=== PATIENT | male | born 1945 | race Caucasian/White ===

== ENCOUNTER 2019-04-01 16:54 | Inpatient (IN) | payer OTHER, MEDICAID ==
[~2019-04-01] VITALS: Ht 167.6 cm; Wt 88.0 kg
[2019-04-01] MEDS: NACL 0.9% 1,000 ML IV SCH (00:35)
[2019-04-01 16:59] VITALS: BP 121/76
[2019-04-01] MEDS ORDERED: SODIUM CHLORIDE FLUSH 10 ML SYR IVF STA (17:54)
--- NOTE | 2019-04-01 18:03 | NUR ---
PT TAKEN TO BED 3.
--- NOTE | 2019-04-01 18:19 | NUR ---
PATIENT PRESENTS TO ED WITH C/O 9/10 DIFFUSE ABDOMINAL PAIN X 15 DAYS. PT STATES THAT PAIN RADIATES TO BACK. +N/V, -DIARRHEA. ABDOMEN SOFT, NON-TENDER. ACTIVE BOWEL SOUNDS. LBM: YESTERDAY. NO URINARY SYMPTOMS. VSS; PATIENT POSITIONED FOR COMFORT; HOB ELEVATED; BEDRAILS UP X2; BED DOWN. ER MD MADE AWARE OF PT STATUS. PMH:HTN, DM, HLD MEDS: AMLODIPINE, METFORMIN, ATORVASTATIN, IBUPROFEN, NAPROXEN, BENAZEPIL, HYDROCODONE-ACETAMINOPHEN, OMEPRAZOLE, AMOXICILLIN NO ALLERGIES.
[2019-04-01 18:27] LABS: BASOPHILS # (AUTO) 0.1 K/uL (0.00-0.22); BASOPHILS % (AUTO) 0.8 % (0.0-2.0); EOSINOPHILS # (AUTO) 0.1 K/uL (0-0.4); EOSINOPHILS % (AUTO) 1.6 % (0.0-4.0); HEMATOCRIT 40.4 % (36-52); HEMOGLOBIN 13.2 g/dL (12.0-18.0); LYMPHOCYTES # (AUTO) 1.2 K/uL (2.0-11.5); LYMPHOCYTES % (AUTO) 15.4 % (20.5-51.1); MEAN CORPUSCULAR HEMOGLOBIN 27 pg (27-31); MEAN CORPUSCULAR HGB CONC 33 g/dL (33-37); MONOCYTES # (AUTO) 0.5 K/uL (0.8-1.0); MONOCYTES % (AUTO) 5.9 % (1.7-9.3); NEUTROPHILS # (AUTO) 6.1 K/uL (1.8-7.7); NEUTROPHILS % (AUTO) 76.3 % (42.2-75.2); PLATELET COUNT (AUTO) 316 K/uL (140-450); RED BLOOD CELL COUNT(AUTO) 4.86 MIL/uL (4.20-6.10); RED CELL DISTRIBUTION WIDTH 22.9 % (11.6-13.7); WHITE BLOOD COUNT (AUTO) 7.9 K/uL (4.8-10.8)
[2019-04-01 18:28] LABS: APPEARANCE,URINE SL CLOUDY (CLEAR); BILIRUBIN,URINE NEGATIVE (NEGATIVE); BLOOD, URINE NEGATIVE (NEGATIVE); COLOR,URINE YELLOW (YELLOW); LEUKOCYTE ESTERASE ,URINE NEGATIVE (NEGATIVE); NITRITE, URINE NEGATIVE (NEGATIVE); UGLUCOSE 3+ (NEGATIVE)
[2019-04-01 18:51] LABS: ALBUMIN 4.3 g/dL (3.4-5.0); ANION GAP 11.9 (8-16); ASPARTATE AMINOTRANSFERASE 21 U/L (15-37); CARBON DIOXIDE 28.7 mmol/L (21-32); CHLORIDE 99 mmol/L (98-107); GLUCOSE 86 mg/dL (74-106); LIPASE 231 U/L (73-393); POTASSIUM 4.6 mmol/L (3.5-5.1); SODIUM SERUM 135 mmol/L (136-145); TOTAL BILIRUBIN 0.3 mg/dL (0.0-1.0); UREA NITROGEN, BLOOD 8 mg/dL (7-18)
[2019-04-01 18:57] LABS: RBC,URINE 0 /HPF (0-5); WBC,URINE 0-5 /HPF (0-5)
[2019-04-01 18:58] LABS: HYALINE CASTS, URINE 0-10 /LPF (None Seen)
--- NOTE | 2019-04-01 19:30 | NUR ---
report given to pm rn, pt stable at this time.
[2019-04-01] MEDS ORDERED: ONDANSETRON 4 MG/2 ML VIAL IVP ONE (19:50)
[2019-04-01] MEDS ORDERED: NACL 0.9% 1,000 ML IV ONE (19:50)
--- NOTE | 2019-04-01 20:01 | NUR ---
PT LEFT TO CT VIA W/C
--- NOTE | 2019-04-01 20:10 | NUR ---
PT RETURNED FROM CT
--- NOTE | 2019-04-01 20:11 | NUR ---
PT AMBULATED TO RESTROOM
[2019-04-01] MEDS ORDERED: MORPHINE SULFATE 4 MG/ML SYR IVP ONE (21:00)
--- NOTE | 2019-04-01 21:05 | NUR ---
PT C/O ABDOMINAL PAIN AND HEADACHE. PAIN LEVEL 8/10. ERMD MADE AWARE.
[2019-04-01] MEDS ORDERED: LEVOFLOXACIN 500 MG/D5W PREMIX 100 ML IV ONE (21:15)
[2019-04-01] MEDS ORDERED: metroNIDAZOLE 500 MG/NS PREMIX 100 ML IV ONE (21:15)
--- NOTE | 2019-04-01 21:35 | NUR ---
PT AMBULATED TO RESTROOM
--- NOTE | 2019-04-01 22:26 | NUR ---
PT RESTING IN BED ON CELL PHONE. VSS. WILL CONTINUE TO MONITOR.
--- NOTE | 2019-04-01 23:00 | NUR ---
PT RESTING IN BED VSS. WILL CONTINUE TO MONITOR.
--- NOTE | 2019-04-01 23:34 | NUR ---
TRANSFER OF CARE AND REPORT GIVEN TO JOSÉ LUIS RAMOS
--- NOTE | 2019-04-01 23:34 | NUR ---
Patient will be admitted to care of DR. LEHMAN. Admited to TELE. Will go to room 121A. Belongings list completed. Report to given to JOSÉ LUIS RAMOS.
--- NOTE | 2019-04-01 23:35 | NUR ---
RECEIVED BEDSIDE REPORT FROM ED RN TRISTNI FOR PT'S CONTINUITY OF CARE. PT IS AAOX4, AMBULATORY, FAMILY MEMBER AT BEDSIDE, ON CUSTOMER SERVICE CONSULTANT, ON ROOM AIR, HAS RIGHT HAND 20G AND LEFT WRIST 20G BOTH SALINE LOCK. 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 BED IS ON LOW POSITION, SIDE RAILS ARE UP, AND CALL LIGHT IS WITHIN REACH. WILL MONITOR PT THROUGHOUT SHIFT.
[2019-04-02] VITALS: BP 145/77
--- NOTE | 2019-04-02 00:35 | NUR ---
HUNG IV FLUID ORDERED. STATES PAIN IS AT TOLERABLE LEVEL. USED SENIOR BUDGET ANALYST FOR ADMISSION QUESTIONNAIRE, SENIOR BUDGET ANALYST #[id number]. PT TEACHING GIVEN REGARDING ABX RECEIVING DURING THIS STAY. PT VERBALIZED UNDERSTANDING. WILL CONTINUE TO MONITOR PT.
[2019-04-02 04:00] VITALS: BP 148/80
--- NOTE | 2019-04-02 04:00 | NUR ---
VS CHECKED AND CHARTED. PT DENIES ANY PAIN AT THIS TIME. WILL CONTINUE TO MONITOR PT.
[2019-04-02] MEDS: metroNIDAZOLE 500 MG/NS PREMIX 100 ML IV SCH ×2 (05:40→13:51)
--- NOTE | 2019-04-02 05:40 | NUR ---
ADMINISTERED SCHEDULED IV ABX ORDERED. PT DENIES ANY PAIN AT THIS TIME. WILL CONTINUE TO MONITOR PT.
--- NOTE | 2019-04-02 06:30 | NUR ---
BLOOD GLUCOSE CHECKED AND CHARTED. PT LYING DOWN ASLEEP WITH NO SIGNS OF DISTRESS. WILL ENDORSE TO AM SHIFT RN FOR PT'S CONTINUITY OF CARE.
--- NOTE | 2019-04-02 07:20 | NUR ---
RECEIVED PT FROM NIGHT NURSE. PT IN BED WITH EYES CLOSED, AROUSABLE TO SPEECH. AAOX4. RESPIRATIONS EVEN AND UNLABORED ON ROOM AIR, CLEAR BREATH SOUNDS. IV IN PLACE INTACT PATENT AND ASYMPTOMATIC IN L W 20G INFUSING PER ORDER AND R H 20G SALINE LOCKED. PT DENIES PAIN, NO DISTRESS NOTED. SAFETY MEASURES IN PLACE. BED IN LOW POSITION. CALL LIGHT WITHIN REACH. WILL CONTINUE TO MONITOR.
[2019-04-02] MEDS: BLOOD GLUCOSE MONITORING 1 DEV DEV FS SCH ×2 (07:30→11:08)
[2019-04-02 08:00] VITALS: BP 150/73
--- NOTE | 2019-04-02 09:16 | NUR ---
PT ROUNDS DONE AT THIS TIME. PT ASSISTED IN GOING TO THE RESTROOM. PT HAD BOWEL MOVEMENT, BROWN, FORMED, BLOOD ABSENT, NO PAIN. WILL CONTINUE TO MONITOR.
--- NOTE | 2019-04-02 10:36 | NUR ---
BLOOD GLUCOSE MONITORED AT THIS TIME. BLOOD SUGAR IS 85, NO COVERAGE NEEDED. WILL CONTINUE TO MONITOR.
--- NOTE | 2019-04-02 11:19 | NUR ---
PT REQUESTS FOOD AND WATER. PT IS STILL NPO, BUT DENIES PAIN AND HAD A FORMED, BLOODLESS BM SO ICE CHIPS HAVE BEEN OFFERED UNTIL MD COMES IN FOR CONSULT. WILL CONTINUE TO MONITOR.
[2019-04-02 11:55] VITALS: BP 117/78
[2019-04-02] MEDS: NACL 0.9% 1,000 ML IV SCH (12:01)
[2019-04-02] MEDS ORDERED: METR250T2 PO (13:12)
[2019-04-02] MEDS ORDERED: CIPR500T4 PO (13:12)
[2019-04-02] MEDS ORDERED: MSCON15 PO (13:28)
--- NOTE | 2019-04-02 13:42 | NUR ---
MEDICATIONS ADMINISTERED PER ORDER. PT TOLERATED WELL. NO DISTRESS NOTED. DENIES PAIN AT THIS TIME. WILL CONTINUE TO MONITOR.
[2019-04-02] MEDS ORDERED: INFLUENZA VACCINE QUAD 0.5 ML SYR IMVAC PRN (13:50)
[2019-04-02 14:04] VITALS: BP 165/78
--- NOTE | 2019-04-02 14:50 | NUR ---
PT READY FOR DISCHARGE AT THIS TIME. DISCHARGE AND FOLLOW UP TEACHING GIVEN AT THIS TIME. DISCHARGE MEDICATION PRESCRIPTION GIVEN, EDUCATION PROVIDED. LEFT W 20 G AND RIGHT H 20 G IV REMOVED WITH MINIMAL BLOOD LOSS AND LUMEN INTACT. RESPIRATIONS EVEN AND UNLABORED, BREATH SOUNDS CLEAR. SKIN INTACT. BELONGINGS RETURNED TO PT. DISCHARGE PAPERWORK SIGNED BY PT. ESCORTED PT OFF UNIT ON FOOT IN COMPANY OF FAMILY MEMBERS. LEFT HOSPITAL IN PRIVATE VEHICLE AT 1450.
[2019-04-02] MEDS ORDERED: LEVOFLOXACIN 500 MG/D5W PREMIX 100 ML IV SCH (21:00)
== END 2019-04-02 15:22 | disposition home or self-care (01) | DRG 392 ==
LOC: MED 16:54 → MTU 22:54
PROVIDERS: ADMIT Internal Medicine Nephrology; ATTEND Internal Medicine Nephrology
DX: K57.32 Diverticulitis of large intestine without perforation or abscess without bleeding (principal); E11.9 Type 2 diabetes mellitus without complications; I11.0 Hypertensive heart disease with heart failure; E78.5 Hyperlipidemia, unspecified; K46.9 Unspecified abdominal hernia without obstruction or gangrene; Z60.2 Problems related to living alone
CPT/HCPCS: 36415; 80053; 81001; 82948; 83690; 85025; 96365; 96368; 96375; 99285; J1956; J2270; J2405; J3490; J7030